=== PATIENT | female | born 1930 | race Caucasian/White ===

== ENCOUNTER → 2017-03-19 | Outpatient (CLI) | payer MEDICARE, OTHER | LOC: LAB 10:23 | DX: Z00.00 Encounter for general adult medical examination without abnormal findings (principal); M19.90 Unspecified osteoarthritis, unspecified site; E03.9 Hypothyroidism, unspecified ==

== ENCOUNTER → 2017-03-28 | Outpatient (CLI) | payer MEDICARE, OTHER | LOC: MAMMO 09:52 | DX: Z12.31 Encounter for screening mammogram for malignant neoplasm of breast (principal); Z00.00 Encounter for general adult medical examination without abnormal findings | CPT/HCPCS: G0202 ==

== ENCOUNTER → 2017-06-07 | Outpatient (CLI) | payer MEDICARE, OTHER | LOC: RAD 11:10 | DX: R07.81 Pleurodynia (principal); J44.9 Chronic obstructive pulmonary disease, unspecified ==

== ENCOUNTER → 2017-06-12 | Outpatient (CLI) | payer MEDICARE, OTHER | LOC: RAD 06-11 09:00 | DX: M89.9 Disorder of bone, unspecified (principal); R07.81 Pleurodynia; Z91.81 History of falling; R91.1 Solitary pulmonary nodule; S22.41XA Multiple fractures of ribs, right side, initial encounter for closed fracture | CPT/HCPCS: Q9967 ==

== ENCOUNTER → 2017-06-24 | Outpatient (CLI) | payer MEDICARE, OTHER | LOC: LAB 13:51 | DX: K92.1 Melena (principal) ==

== ENCOUNTER → 2017-07-05 | Outpatient (CLI) | payer MEDICARE, OTHER | LOC: LAB 09:51 | DX: K92.1 Melena (principal); D64.9 Anemia, unspecified ==

== ENCOUNTER → 2017-09-06 | Outpatient (CLI) | payer MEDICARE, OTHER | LOC: LAB 14:06 | DX: E61.1 Iron deficiency (principal) ==

== ENCOUNTER → 2017-10-14 | Outpatient (CLI) | payer MEDICARE, OTHER ==
[2017-10-14 14:03] LABS: EOS # 0.1 (0.04-0.40); EOS % 2.4 % (1.0-5.0); HEMATOCRIT 35.7 % (37.0-47.0); HEMOGLOBIN 11.9 g/dL (12.5-16.0); LYMPH# 1.4 (1.50-4.00); MEAN CELL VOLUME 93 fl (78-100); MEAN CORPUSCULAR HEMOGLOBIN 31 pg (27-31); MEAN CORPUSCULAR HGB CONC 33 g/dL (33-37); MONO # 0.4 (0.20-0.80); NEU # 2.5 (1.40-6.50); PLATELET COUNT 215 K/mm3 (130-400); RED BLOOD COUNT 3.85 M/mm3 (4.10-5.30); WHITE BLOOD COUNT 4.6 K/mm3 (4.8-10.8)
[2017-10-14 14:19] LABS: ALBUMIN 3.9 g/dL (3.5-5.0); BUN/CREATININE RATIO 31.7 (6.0-26.0); CALCIUM 9.8 mg/dL (8.4-10.2); POTASSIUM 3.9 mmol/L (3.6-5.0); TOTAL BILIRUBIN 1.1 mg/dL (0.2-1.3); TOTAL PROTEIN 7.1 g/dL (6.3-8.2)
== END ==
LOC: RAD 13:35
PROVIDERS: Nurse Practitioner Family
DX: R10.31 Right lower quadrant pain (principal); N39.0 Urinary tract infection, site not specified

== ENCOUNTER → 2018-03-31 | Outpatient (CLI) | payer MEDICARE, OTHER ==
[2018-03-31 10:53] LABS: EOS # 0.1 (0.04-0.40); EOS % 1.9 % (1.0-5.0); LYMPH# 1.4 (1.50-4.00); MEAN CELL VOLUME 93 fl (78-100); MEAN CORPUSCULAR HEMOGLOBIN 31 pg (27-31); MEAN CORPUSCULAR HGB CONC 33 g/dL (33-37); MEAN PLATELET VOLUME 9.7 fl (7.4-10.4); MONO # 0.4 (0.20-0.80); NEU # 1.8 (1.40-6.50); PLATELET COUNT 189 K/mm3 (130-400); RED BLOOD COUNT 3.88 M/mm3 (4.10-5.30); RED CELL DISTRIBUTION WIDTH 13.4 % (11.5-14.5); WHITE BLOOD COUNT 3.6 K/mm3 (4.8-10.8)
[2018-03-31 11:06] LABS: ALBUMIN 3.9 g/dL (3.5-5.0); BUN/CREATININE RATIO 30.6 (6.0-26.0); CALCIUM 9.6 mg/dL (8.4-10.2); POTASSIUM 3.8 mmol/L (3.6-5.0); TOTAL PROTEIN 7.4 g/dL (6.3-8.2)
== END ==
LOC: RAD 10:36
PROVIDERS: Nurse Practitioner Family
DX: S69.91XA Unspecified injury of right wrist, hand and finger(s), initial encounter (principal)

== ENCOUNTER → 2018-06-30 | Outpatient (CLI) | payer MEDICARE, OTHER ==
[2018-06-30 14:08] LABS: HEMATOCRIT 33.2 % (37.0-47.0); HEMOGLOBIN 10.9 g/dL (12.5-16.0); MEAN PLATELET VOLUME 9.8 fl (7.4-10.4); RED BLOOD COUNT 3.52 M/mm3 (4.10-5.30); RED CELL DISTRIBUTION WIDTH 14.3 % (11.5-14.5); WHITE BLOOD COUNT 3.9 K/mm3 (4.8-10.8)
== END ==
LOC: LAB 13:57
PROVIDERS: Nurse Practitioner Family
DX: Z86.2 Personal history of diseases of the blood and blood-forming organs and certain disorders involving the immune mechanism (principal)

== ENCOUNTER → 2018-07-15 | Outpatient (CLI) | payer MEDICARE, OTHER | LOC: LAB 12:49 → RAD 12:49 | DX: S62.616A Displaced fracture of proximal phalanx of right little finger, initial encounter for closed fracture (principal); S92.415A Nondisplaced fracture of proximal phalanx of left great toe, initial encounter for closed fracture; S92.425A Nondisplaced fracture of distal phalanx of left great toe, initial encounter for closed fracture ==

== ENCOUNTER → 2018-09-01 | Outpatient (CLI) | payer MEDICARE, OTHER ==
[2018-09-01 10:03] LABS: EOS # 0.1 (0.04-0.40); EOS % 3.4 % (1.0-5.0); HEMATOCRIT 32.1 % (37.0-47.0); HEMOGLOBIN 10.7 g/dL (12.5-16.0); LYMPH# 1.2 (1.50-4.00); MEAN CELL VOLUME 93 fl (78-100); MEAN CORPUSCULAR HEMOGLOBIN 31 pg (27-31); MEAN CORPUSCULAR HGB CONC 33 g/dL (33-37); MEAN PLATELET VOLUME 9.9 fl (7.4-10.4); MONO # 0.4 (0.20-0.80); PLATELET COUNT 188 K/mm3 (130-400); RED BLOOD COUNT 3.44 M/mm3 (4.10-5.30); RED CELL DISTRIBUTION WIDTH 14.1 % (11.5-14.5); WHITE BLOOD COUNT 3.8 K/mm3 (4.8-10.8)
== END ==
LOC: LAB 09:38
PROVIDERS: Physician Assistant
DX: Z09 Encounter for follow-up examination after completed treatment for conditions other than malignant neoplasm (principal); Z86.2 Personal history of diseases of the blood and blood-forming organs and certain disorders involving the immune mechanism

== ENCOUNTER → 2018-11-05 | Outpatient (CLI) | payer MEDICARE, OTHER ==
[2018-11-05 09:28] LABS: HEMATOCRIT 35.5 % (37.0-47.0); HEMOGLOBIN 11.8 g/dL (12.5-16.0); MEAN PLATELET VOLUME 10.1 fl (7.4-10.4); RED BLOOD COUNT 3.75 M/mm3 (4.10-5.30); RED CELL DISTRIBUTION WIDTH 14.2 % (11.5-14.5); WHITE BLOOD COUNT 4.8 K/mm3 (4.8-10.8)
== END ==
LOC: LAB 09:13
PROVIDERS: Physician Assistant
DX: Z86.2 Personal history of diseases of the blood and blood-forming organs and certain disorders involving the immune mechanism (principal)

== ENCOUNTER → 2019-02-10 | Outpatient (CLI) | payer MEDICARE, OTHER ==
[2019-01-30 12:28] LABS: EOS # 0.1 (0.04-0.40); EOS % 2.7 % (1.0-5.0); HEMATOCRIT 37.3 % (37.0-47.0); HEMOGLOBIN 12.2 g/dL (12.5-16.0); MEAN CELL VOLUME 94 fl (78-100); MEAN CORPUSCULAR HEMOGLOBIN 31 pg (27-31); MEAN CORPUSCULAR HGB CONC 33 g/dL (33-37); MEAN PLATELET VOLUME 10.6 fl (7.4-10.4); MONO # 0.4 (0.20-0.80); NEU # 2.9 (1.40-6.50); PLATELET COUNT 207 K/mm3 (130-400); RED BLOOD COUNT 3.98 M/mm3 (4.10-5.30); RED CELL DISTRIBUTION WIDTH 14.1 % (11.5-14.5); WHITE BLOOD COUNT 4.5 K/mm3 (4.8-10.8)
[2019-01-30 13:28] LABS: ALBUMIN 4.2 g/dL (3.5-5.0); POTASSIUM 4.1 mmol/L (3.6-5.0); TOTAL BILIRUBIN 0.8 mg/dL (0.2-1.3); TOTAL PROTEIN 7.4 g/dL (6.3-8.2)
[2019-01-30 13:47] LABS: PARTIAL THROMBOPLASTIN TIME 23.8 SECONDS (21.0-32.0); PROTHROMBIN TIME 10.5 SECONDS (9.0-12.0)
[2019-01-30 14:57] LABS: ERYTHROCYTE SEDIMENTATION RATE 8 mm/hr (0-30)
== END ==
LOC: LAB 01-30 10:48
PROVIDERS: Physician Assistant
DX: R19.5 Other fecal abnormalities (principal); R53.83 Other fatigue; R19.4 Change in bowel habit; Z79.1 Long term (current) use of non-steroidal anti-inflammatories (NSAID)

== ENCOUNTER → 2019-02-10 | Outpatient (CLI) | payer MEDICARE, OTHER | LOC: LAB 08:00 | DX: R19.5 Other fecal abnormalities (principal); R53.83 Other fatigue; R19.4 Change in bowel habit; Z79.1 Long term (current) use of non-steroidal anti-inflammatories (NSAID) ==

== ENCOUNTER → 2019-06-03 | Outpatient (CLI) | payer MEDICARE, OTHER ==
[2019-06-03 11:04] LABS: ALBUMIN 3.9 g/dL (3.4-4.8); POTASSIUM 4.1 mmol/L (3.5-5.1)
[2019-06-03 11:05] LABS: CALCIUM 9.9 mg/dL (8.3-10.5)
[2019-06-03 11:06] LABS: TOTAL PROTEIN 6.5 g/dL (6.2-8.1)
[2019-06-03 11:08] LABS: TOTAL BILIRUBIN 1.4 mg/dL (0.2-1.2)
[2019-06-03 11:12] LABS: EOS # 0.1 (0.04-0.40); EOS % 3.9 % (1.0-5.0); HEMATOCRIT 35.5 % (37.0-47.0); HEMOGLOBIN 11.4 g/dL (12.5-16.0); LYMPH# 1.3 (1.50-4.00); MEAN CELL VOLUME 94 fl (78-100); MEAN CORPUSCULAR HEMOGLOBIN 30 pg (27-31); MEAN CORPUSCULAR HGB CONC 32 g/dL (33-37); MEAN PLATELET VOLUME 10.9 fl (7.4-10.4); MONO # 0.4 (0.20-0.80); NEU # 1.8 (1.40-6.50); PLATELET COUNT 190 K/mm3 (130-400); RED BLOOD COUNT 3.76 M/mm3 (4.10-5.30); RED CELL DISTRIBUTION WIDTH 14.6 % (11.5-14.5); WHITE BLOOD COUNT 3.6 K/mm3 (4.8-10.8)
== END ==
LOC: LAB 09:16
PROVIDERS: Physician Assistant
DX: Z00.00 Encounter for general adult medical examination without abnormal findings (principal); E03.4 Atrophy of thyroid (acquired); E03.9 Hypothyroidism, unspecified; M81.0 Age-related osteoporosis without current pathological fracture; D64.9 Anemia, unspecified; H54.3 Unqualified visual loss, both eyes

== ENCOUNTER → 2019-11-05 | Outpatient (CLI) | payer MEDICARE, OTHER ==
[2019-11-05 11:16] LABS: EOS # 0.1 (0.04-0.40); EOS % 3.5 % (1.0-5.0); HEMOGLOBIN 11.6 g/dL (12.5-16.0); LYMPH# 1.2 (1.50-4.00); MEAN CELL VOLUME 96 fl (78-100); MEAN CORPUSCULAR HEMOGLOBIN 31 pg (27-31); MEAN CORPUSCULAR HGB CONC 32 g/dL (33-37); MEAN PLATELET VOLUME 9.9 fl (7.4-10.4); MONO # 0.4 (0.20-0.80); PLATELET COUNT 200 K/mm3 (130-400); RED BLOOD COUNT 3.74 M/mm3 (4.10-5.30); WHITE BLOOD COUNT 3.7 K/mm3 (4.8-10.8)
[2019-11-05 11:32] LABS: ALBUMIN 4.1 g/dL (3.4-4.8)
[2019-11-05 11:33] LABS: POTASSIUM 3.9 mmol/L (3.5-5.1)
[2019-11-05 11:34] LABS: CALCIUM 10.2 mg/dL (8.3-10.5)
[2019-11-05 11:35] LABS: TOTAL PROTEIN 7.1 g/dL (6.2-8.1)
[2019-11-05 11:37] LABS: TOTAL BILIRUBIN 1.1 mg/dL (0.2-1.2)
== END ==
LOC: LAB 11:02
PROVIDERS: Physician Assistant
DX: E03.9 Hypothyroidism, unspecified (principal); D64.9 Anemia, unspecified; M81.0 Age-related osteoporosis without current pathological fracture; K59.00 Constipation, unspecified

== ENCOUNTER → 2020-06-08 | Outpatient (CLI) | payer MEDICARE, OTHER ==
[2020-06-08 10:32] LABS: HEMOGLOBIN 11.4 g/dL (12.5-16.0); MEAN CELL VOLUME 96 fl (78-100); MEAN CORPUSCULAR HEMOGLOBIN 30 pg (27-31); MEAN CORPUSCULAR HGB CONC 32 g/dL (33-37); PLATELET COUNT 182 K/mm3 (130-400); RED BLOOD COUNT 3.75 M/mm3 (4.10-5.30); RED CELL DISTRIBUTION WIDTH 14.6 % (11.5-14.5); WHITE BLOOD COUNT 3.4 K/mm3 (4.8-10.8)
[2020-06-08 11:16] LABS: POTASSIUM 3.6 mmol/L (3.5-5.1)
[2020-06-08 11:17] LABS: ALBUMIN 3.9 g/dL (3.4-4.8)
[2020-06-08 11:18] LABS: CALCIUM 9.3 mg/dL (8.3-10.5)
[2020-06-08 11:53] LABS: LYMPHOCYTE 36 % (20-51); MONOCYTE 13 % (3-10); NEUTROPHILS 47 % (42-75)
== END ==
LOC: LAB 08:54 → RAD 08:54
PROVIDERS: Physician Assistant
DX: Z00.00 Encounter for general adult medical examination without abnormal findings (principal); K56.41 Fecal impaction; D64.9 Anemia, unspecified; E03.4 Atrophy of thyroid (acquired); M81.0 Age-related osteoporosis without current pathological fracture; H61.22 Impacted cerumen, left ear; R63.4 Abnormal weight loss

== ENCOUNTER → 2020-07-29 | Outpatient (CLI) | payer MEDICARE, OTHER | LOC: LAB 13:48 | DX: K59.00 Constipation, unspecified (principal); K92.1 Melena; D64.9 Anemia, unspecified ==

== ENCOUNTER → 2021-02-07 | Outpatient (CLI) | payer MEDICARE, OTHER ==
[~2021-02-07] MED LIST: ACETAMINOPHEN325 M1 PO; ASCORBIC ACID500 M3 PO; ASPIRIN E.C. 8181 MG PO; CALCIUM 600 MG-1 TAB PO; DAILY VITAMIN1 EAC3 PO; DESYREL50 MG PO; DOCUSATE SOD100 MG PO; MIRALAX17 GM PO; NATURAL IRON65 MG PO; PRILOSEC 20MG20 MG PO; Patient's Own Medica OP; SYNTHROID0.075 MG PO; SYSTANE 0.3-0.415 ML OP; VITAMIN D325 MC1 PO; VOLTAREN ARTHRI20 GM TP
== END ==
LOC: RAD 11:35
DX: M16.11 Unilateral primary osteoarthritis, right hip (principal); M17.11 Unilateral primary osteoarthritis, right knee; M86.8X8 Other osteomyelitis, other site

== ENCOUNTER 2021-02-08 12:44 | Emergency (ER) | payer MEDICARE, OTHER ==
[2021-02-08 13:44] LABS: EOS # 0.1 (0.04-0.40); EOS % 2.7 % (1.0-5.0); HEMATOCRIT 37.2 % (37.0-47.0); HEMOGLOBIN 11.9 g/dL (12.5-16.0); LYMPH# 0.8 (1.50-4.00); MEAN CELL VOLUME 94 fl (78-100); MEAN CORPUSCULAR HEMOGLOBIN 30 pg (27-31); MEAN CORPUSCULAR HGB CONC 32 g/dL (33-37); MEAN PLATELET VOLUME 10.3 fl (7.4-10.4); MONO # 0.4 (0.20-0.80); PLATELET COUNT 207 K/mm3 (130-400); RED BLOOD COUNT 3.95 M/mm3 (4.10-5.30); RED CELL DISTRIBUTION WIDTH 13.7 % (11.5-14.5); WHITE BLOOD COUNT 3.3 K/mm3 (4.8-10.8)
[2021-02-08 13:50] LABS: ALBUMIN 4.2 g/dL (3.4-4.8); POTASSIUM 4.7 mmol/L (3.5-5.1)
[2021-02-08 13:52] LABS: CALCIUM 10.1 mg/dL (8.3-10.5)
[2021-02-08 13:53] LABS: TOTAL PROTEIN 7.3 g/dL (6.2-8.1)
[2021-02-08 13:55] LABS: TOTAL BILIRUBIN 1.2 mg/dL (0.2-1.2)
[2021-02-08 14:30] LABS: URINE APPEARANCE CLOUDY; URINE BILIRUBIN NEGATIVE (NEGATIVE); URINE BLOOD 50 ery/uL (NEGATIVE); URINE COLOR YELLOW; URINE GLUCOSE NEGATIVE (NEGATIVE); URINE KETONE 1+ (NEGATIVE); URINE LEUKOCYTE ESTERASE NEGATIVE (NEGATIVE); URINE NITRATE NEGATIVE (NEGATIVE); URINE PROTEIN(semi-quant) TRACE mg/dL (NEGATIVE); URINE UROBILINOGEN NORMAL (NORMAL)
[2021-02-08 14:31] LABS: URINE MUCUS PRESENT (NOT PRESENT)
[2021-02-08 15:46] VITALS: BP 160/84
[2021-02-09] MEDS ORDERED: ASCORBIC ACID500 M3 PO (15:40)
[2021-02-09] MEDS ORDERED: CALCIUM 600 MG-1 TAB PO (15:42)
[2021-02-09] MEDS ORDERED: VITAMIN D325 MC1 PO (15:43)
[2021-02-09] MEDS ORDERED: VOLTAREN ARTHRI20 GM TP (15:44)
[2021-02-09] MEDS ORDERED: SYNTHROID0.075 MG PO (15:45)
[2021-02-09] MEDS ORDERED: NATURAL IRON65 MG PO (15:45)
[2021-02-09] MEDS ORDERED: DAILY VITAMIN1 EAC3 PO (15:46)
[2021-02-09] MEDS ORDERED: PRILOSEC 20MG20 MG PO (15:46)
[2021-02-09] MEDS ORDERED: MIRALAX17 GM PO (15:47)
== END 2021-02-08 15:47 | disposition home or self-care (01) ==
LOC: ED 12:44
PROVIDERS: Physician Assistant
DX: R53.1 Weakness (principal); R53.81 Other malaise; T88.1XXA Other complications following immunization, not elsewhere classified, initial encounter

== ENCOUNTER 2021-02-09 15:33 | Inpatient (IN) | payer MEDICARE, OTHER ==
[2021-02-09] MEDS ORDERED: ASCORBIC ACID500 M3 PO (15:40)
[2021-02-09] MEDS ORDERED: CALCIUM 600 MG-1 TAB PO (15:42)
[2021-02-09] MEDS ORDERED: VITAMIN D325 MC1 PO (15:43)
[2021-02-09] MEDS ORDERED: VOLTAREN ARTHRI20 GM TP (15:44)
[2021-02-09] MEDS ORDERED: NATURAL IRON65 MG PO (15:45)
[2021-02-09] MEDS ORDERED: SYNTHROID0.075 MG PO (15:45)
[2021-02-09] MEDS ORDERED: DAILY VITAMIN1 EAC3 PO (15:46)
[2021-02-09] MEDS ORDERED: PRILOSEC 20MG20 MG PO (15:46)
[2021-02-09] MEDS ORDERED: MIRALAX17 GM PO (15:47)
[2021-02-09 16:15] VITALS: BP 161/90
[2021-02-09 16:32] LABS: EOS # 0.1 (0.04-0.40); EOS % 2.1 % (1.0-5.0); HEMATOCRIT 38.7 % (37.0-47.0); HEMOGLOBIN 12.6 g/dL (12.5-16.0); LYMPH# 0.9 (1.50-4.00); MEAN CELL VOLUME 94 fl (78-100); MEAN CORPUSCULAR HEMOGLOBIN 31 pg (27-31); MEAN CORPUSCULAR HGB CONC 33 g/dL (33-37); MEAN PLATELET VOLUME 10.2 fl (7.4-10.4); MONO # 0.5 (0.20-0.80); NEU # 2.8 (1.40-6.50); PLATELET COUNT 212 K/mm3 (130-400); RED BLOOD COUNT 4.13 M/mm3 (4.10-5.30); RED CELL DISTRIBUTION WIDTH 13.7 % (11.5-14.5); WHITE BLOOD COUNT 4.3 K/mm3 (4.8-10.8)
[2021-02-09 16:47] LABS: SODIUM 142 mmol/L (136-145)
[2021-02-09 16:48] LABS: CALCIUM 9.9 mg/dL (8.3-10.5)
[2021-02-09 16:49] LABS: GLUCOSE 94 mg/dL (65-105); TOTAL PROTEIN 7.2 g/dL (6.2-8.1)
[2021-02-09 16:50] LABS: CARBON DIOXIDE 26 mmol/L (23-31)
[2021-02-09 16:51] LABS: TOTAL BILIRUBIN 0.9 mg/dL (0.2-1.2)
[2021-02-09 16:55] LABS: AST-SGOT 36 U/L (5-34)
[2021-02-09 16:56] LABS: ALT/SGPT 25 U/L (0-55)
[2021-02-09 17:04] LABS: TROPONIN-I < 0.03 ng/mL (<0.030)
[2021-02-09 23:02] VITALS: BP 118/64
[2021-02-09 23:45] LABS: PH-URINE 5.5 (5.0 - 8.0); URINE APPEARANCE HAZY; URINE BILIRUBIN NEGATIVE (NEGATIVE); URINE BLOOD TRACE (NEGATIVE); URINE COLOR LT YELLOW; URINE GLUCOSE NEGATIVE (NEGATIVE); URINE KETONE NEGATIVE (NEGATIVE); URINE LEUKOCYTE ESTERASE NEGATIVE (NEGATIVE); URINE NITRATE NEGATIVE (NEGATIVE); URINE PROTEIN(semi-quant) NEGATIVE (NEGATIVE); URINE UROBILINOGEN NORMAL (NORMAL); URINE WBC 0-1 /hpf (0-3)
[2021-02-09 23:46] LABS: URINE MUCUS PRESENT (NOT PRESENT)
[2021-02-10 02:40] VITALS: BP 132/62
[2021-02-10 06:02] VITALS: BP 151/75
[2021-02-10 10:04] VITALS: BP 115/71
[2021-02-10] MEDS ORDERED: SYSTANE 0.3-0.415 ML OP (12:13)
[2021-02-10 14:09] VITALS: BP 101/62
[2021-02-10 18:04] VITALS: BP 121/75
[2021-02-10 22:28] VITALS: BP 166/94
[2021-02-11 00:48] VITALS: BP 164/78
[2021-02-11 05:35] VITALS: BP 160/78
[2021-02-11 10:00] VITALS: BP 143/83
[2021-02-11 10:28] LABS: EOS % 0.7 % (1.0-5.0); HEMATOCRIT 37.3 % (37.0-47.0); HEMOGLOBIN 12.1 g/dL (12.5-16.0); MEAN CELL VOLUME 94 fl (78-100); MEAN CORPUSCULAR HEMOGLOBIN 31 pg (27-31); MEAN CORPUSCULAR HGB CONC 32 g/dL (33-37); MONO # 0.3 (0.20-0.80); NEU # 3.1 (1.40-6.50); PLATELET COUNT 196 K/mm3 (130-400); RED BLOOD COUNT 3.96 M/mm3 (4.10-5.30); RED CELL DISTRIBUTION WIDTH 13.8 % (11.5-14.5); WHITE BLOOD COUNT 4.2 K/mm3 (4.8-10.8)
[2021-02-11 10:29] LABS: LYMPH# 0.6 (1.50-4.00)
[2021-02-11 10:39] LABS: ALBUMIN 3.4 g/dL (3.4-4.8); POTASSIUM 3.6 mmol/L (3.5-5.1)
[2021-02-11 10:40] LABS: CALCIUM 8.9 mg/dL (8.3-10.5)
[2021-02-11 10:42] LABS: TOTAL PROTEIN 6.1 g/dL (6.2-8.1)
[2021-02-11 10:43] LABS: TOTAL BILIRUBIN 1.1 mg/dL (0.2-1.2)
[2021-02-11 14:01] VITALS: BP 113/69
[2021-02-11 17:17] VITALS: BP 138/77
[2021-02-11 21:48] VITALS: BP 152/79
[2021-02-12 02:01] VITALS: BP 170/77
[2021-02-12 05:49] VITALS: BP 138/80
[2021-02-12 10:16] VITALS: BP 108/62
[2021-02-12 15:13] VITALS: BP 80/51
[2021-02-12 18:14] VITALS: BP 100/64
[2021-02-12 21:44] VITALS: BP 100/64
[2021-02-13 05:39] VITALS: BP 134/68
[2021-02-13 09:53] VITALS: BP 102/61
[2021-02-13 14:29] VITALS: BP 109/65
[2021-02-13 17:57] VITALS: BP 128/67
[2021-02-13 22:49] VITALS: BP 146/76
[2021-02-14 02:10] VITALS: BP 120/63
[2021-02-14 06:00] VITALS: BP 116/67
[2021-02-14 10:07] VITALS: BP 108/66
[2021-02-14 14:09] VITALS: BP 94/56
[2021-02-14 22:09] LABS: FOLATE (FOLIC ACID) 16.9 ng/mL (7.0-31.4)
== END 2021-02-14 16:12 | disposition swing bed (61) | DRG 66 ==
LOC: MED/SURG 15:33
PROVIDERS: Family Medicine; ADMIT Nurse Practitioner Family
DX: I63.9 Cerebral infarction, unspecified (principal); H40.9 Unspecified glaucoma; E03.9 Hypothyroidism, unspecified; D50.9 Iron deficiency anemia, unspecified; E55.9 Vitamin D deficiency, unspecified; M19.90 Unspecified osteoarthritis, unspecified site; T50.B95A Adverse effect of other viral vaccines, initial encounter; G20 Parkinson's disease; Z66 Do not resuscitate; I10 Essential (primary) hypertension; R29.707 NIHSS score 7; E86.0 Dehydration; R47.01 Aphasia; R27.0 Ataxia, unspecified; H35.30 Unspecified macular degeneration; M25.562 Pain in left knee; R53.81 Other malaise; Z91.81 History of falling
CPT/HCPCS: A9585; J1650; J7030

== ENCOUNTER 2021-02-14 16:12 | Inpatient (IN) | payer MEDICARE, OTHER ==
[~2021-02-14 16:12] MED LIST changes: -ACETAMINOPHEN325 M1 PO; -ASPIRIN E.C. 8181 MG PO; -DESYREL50 MG PO; -DOCUSATE SOD100 MG PO; -Patient's Own Medica OP
[2021-02-14 17:21] VITALS: BP 96/55
[2021-02-14 17:48] VITALS: BP 135/90
[2021-02-15 05:56] VITALS: BP 146/77
[2021-02-15 17:27] VITALS: BP 103/52
[2021-02-16 06:21] VITALS: BP 155/67
[2021-02-16 16:59] LABS: EOS # 0.1 (0.04-0.40); EOS % 1.5 % (1.0-5.0); HEMATOCRIT 37.6 % (37.0-47.0); HEMOGLOBIN 12.4 g/dL (12.5-16.0); LYMPH# 0.8 (1.50-4.00); MEAN CELL VOLUME 92 fl (78-100); MEAN CORPUSCULAR HEMOGLOBIN 31 pg (27-31); MEAN CORPUSCULAR HGB CONC 33 g/dL (33-37); MEAN PLATELET VOLUME 10.5 fl (7.4-10.4); MONO # 0.5 (0.20-0.80); NEU # 4.4 (1.40-6.50); PLATELET COUNT 215 K/mm3 (130-400); RED BLOOD COUNT 4.07 M/mm3 (4.10-5.30); WHITE BLOOD COUNT 5.8 K/mm3 (4.8-10.8)
[2021-02-16 17:03] LABS: POTASSIUM 3.4 mmol/L (3.5-5.1)
[2021-02-16 17:04] LABS: CALCIUM 9.5 mg/dL (8.3-10.5)
[2021-02-16 17:27] VITALS: BP 124/66
[2021-02-16 21:00] VITALS: BP 175/91
[2021-02-17 05:51] VITALS: BP 138/61
[2021-02-17 13:59] LABS: URINE APPEARANCE CLEAR; URINE BILIRUBIN NEGATIVE (NEGATIVE); URINE BLOOD TRACE (NEGATIVE); URINE COLOR YELLOW; URINE GLUCOSE NEGATIVE (NEGATIVE); URINE KETONE SMALL (NEGATIVE); URINE LEUKOCYTE ESTERASE NEGATIVE (NEGATIVE); URINE MUCUS PRESENT (NOT PRESENT); URINE NITRATE NEGATIVE (NEGATIVE); URINE PROTEIN(semi-quant) TRACE mg/dL (NEGATIVE); URINE UROBILINOGEN NORMAL (NORMAL)
[2021-02-17 17:29] VITALS: BP 124/55
[2021-02-17] MEDS ORDERED: DOCUSATE SOD100 MG PO (19:34)
[2021-02-17] MEDS ORDERED: ASPIRIN E.C. 8181 MG PO (19:34)
[2021-02-17] MEDS ORDERED: ACETAMINOPHEN325 M1 PO (19:34)
[2021-02-17] MEDS ORDERED: Patient's Own Medica OP (19:35)
[2021-02-17] MEDS ORDERED: DESYREL50 MG PO (19:35)
[2021-02-17 20:15] VITALS: BP 125/71
== END 2021-02-17 20:30 | disposition short-term general hospital (02) | DRG 884 ==
LOC: MED/SURG 16:12
PROVIDERS: Internal Medicine; Physician Assistant; ADMIT Nurse Practitioner Family
DX: R41.89 Other symptoms and signs involving cognitive functions and awareness (principal); R47.01 Aphasia; E03.9 Hypothyroidism, unspecified; D50.9 Iron deficiency anemia, unspecified; E55.9 Vitamin D deficiency, unspecified; I10 Essential (primary) hypertension; M19.90 Unspecified osteoarthritis, unspecified site; R44.1 Visual hallucinations; R56.9 Unspecified convulsions; R13.10 Dysphagia, unspecified; H40.9 Unspecified glaucoma; R27.0 Ataxia, unspecified; Z66 Do not resuscitate; R53.81 Other malaise
CPT/HCPCS: J1650